=== PATIENT | male | born 1995 | race Caucasian/White ===

== ENCOUNTER 2020-05-31 02:07 | Emergency (ER) | payer OTHER ==
--- NOTE | 2020-05-31 02:11 | PDOC ---
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 Patient said there was a fair amount of blood and he got it on his hands and clothes. Patient denies getting any in his mouth nose face or eyes. Patient denies any open wounds on exposed surfaces where he came in contact with the blood. 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 No smoking. No alcohol. No illicit drugs. Surgical history: None General: No fevers or chills, no weakness, no weight loss HEENT: No change in vision. No sore throat,. No ear pain CardioVascular: no chest discomfort. No shortness of breath Respiratory:No cough, or wheezing. Gastrointestinal: no nausea, vomiting, diarrhea or constipation, No rectal bleeding Genitourinary: No dysuria, hematuria, or frequency Musculoskeletal: No joint or muscle pain or swelling Neurologic: No headache, vertigo, dizziness or loss of consciousness Psychiatric: nor depression Skin: No rashes or easy bruising Endocrine: no increased thirst or abnormal weight change Allergic: no skin or latex allergy All other systems reviewed and normal GENERAL: The patient is awake, alert, and fully oriented, in no acute distress. HEENT:Head is normal with no signs of trauma. Eyes: Pupils equal, round and reactive to light, Ears, and Throat are normal. Neck is supple. No Lymphadenopathy. EXTREMITIES:atraumatic, Normal range of motion, no edema. NEUROLOGICAL: Normal speech, normal gait. PSYCH: Normal mood, normal affect. SKIN: Warm, Dry, normal turgor, no rashes or lesions noted. 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 Patient discharged we will follow-up with the police surgeon as needed. HIV prophylaxis was not given as there was no exposure to mucous membranes or open wounds Discharge - Discharge Information Problems reviewed: Yes Clinical Impression/Diagnosis: Exposure to blood or body fluid Condition: Stable Disposition: HOME - Admission No - Follow up/Referral - Patient Discharge Instructions Additional Instructions: Return to the emergency department immediately with ANY new, persistent or worsening symptoms. Continue any medications as previously prescribed by your physician. You should follow up with your primary doctor as soon as possible regarding today's emergency department visit. . Please make sure your doctor reviews the results of your emergency evaluation. Thank you for coming to the Emergency Department today for your care. It was a pleasure to see you today. Please note that your evaluation is INCOMPLETE until you follow-up with your doctor. - Post Discharge Activity Work/Back to School Note: Back to Work
[2020-05-31 04:48] VITALS: BP 139/84; PULSE 88; TEMP 98.1; BMI 28.8
== END 2020-05-31 02:35 | disposition home or self-care (01) ==
LOC: FER 02:07
DX: Z77.21 Contact with and (suspected) exposure to potentially hazardous body fluids (principal)
CPT/HCPCS: 99282-25

== ENCOUNTER 2020-08-10 23:03 | Emergency (ER) | payer OTHER ==
--- NOTE | 2020-08-10 23:07 | PDOC ---
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 Patient describes falling directly on his right patella during the restraint. He does not recall any twisting motion or other injury to his lower extremities. No head/neck or torso injury sustained. When the patient arose, he felt some stiffness in the right knee as well as mild discomfort. Since then, he has had no difficulty with weightbearing or walking. Past history notable for 2 reconstructive procedures on the right patellar tendon (2012 and 2013) which involved cadaver donor tissue and hardware (football related injuries). The patient has no residual pain or difficulty with movement of the right knee. No daily medications No known allergies Non-smoker/no daily alcohol or other recreational drug use Past History - Medical History Allergies/Adverse Reactions: Allergies Allergy/AdvReac Type Severity Reaction Status Date / Time No Known Allergies Allergy Verified 08/10/20 23:28 Home Medications: Ambulatory Orders NK [No Known Home Medication] 05/31/20 COPD: No - Psycho-Social/Smoking History Smoking History: Never smoked Have you smoked in the past 12 months: No Review of Systems - Review of Systems Able to Perform ROS?: Yes Comments:: 12 point review of systems is negative except for what is noted in the history of present illness *Physical Exam - Physical Exam GENERAL: Adult male, alert and oriented x3, no acute distress HEAD: Normal with no signs of trauma. EYES: PERRLA, EOMI, sclera anicteric, conjunctiva clear. ENT: Ears normal, nares patent, oropharynx clear without exudates. Dry mucous membranes. EXTREMITIES: Right lower extremitymild edema anterior aspect of the knee without ecchymosis, tenderness or deformity Patellar tendon intact without defect or tenderness; ligamentous stable without pain on stressing Remainder the extremity exam is normal NEUROLOGICAL: Cranial nerves II through XII grossly intact. Normal speech. No focal neurological deficits SKIN: Warm, Dry, normal turgor, no rashes or lesions noted. ED Progress Note - Progress Note Progress Note: As noted above, this 25-year-old man, otherwise healthy, [employer] presents with right knee injury sustained while working about half hour prior to presentation. He describes impacting the right patella during the restraint of an EDP. He had some stiffness and discomfort at first, with weightbearing. Symptoms have subsequently improved. He has not taken any medication since the injury. Exam as noted. Because of the patient's history of patellar tendon reconstruction and mild edema of the patellar surface, 3 position x-ray of the right knee was performed. Preliminary interpretation by me: No evidence of acute fracture or dislocation. Results discussed with the patient. Patient refused any immobilization such as knee immobilizer or Obey wrap. He states when he returns home from work, he will elevate and ice the area. He also deferred any NSAID now and will take his own Motrin/Aleve when he returns home. Patient will follow-up with his orthopedist if he has persistent or worsening pain, swelling or bruising in the area. Discharge - Discharge Information Problems reviewed: Yes Clinical Impression/Diagnosis: Contusion of right knee Qualifiers: Encounter type: initial encounter Qualified Code(s): S80.01XA - Contusion of right knee, initial encounter Condition: Stable Disposition: HOME - Follow up/Referral - Patient Discharge Instructions Patient Printed Discharge Instructions: DI for Contusion Additional Instructions: Ice/elevation right knee for the next 2 days Avoid strenuous activity involving lower extremities for the next 3 to 4 days Ibuprofen/naproxen/acetaminophen as needed for pain Follow-up with your orthopedist if you have worsening pain/swelling - Post Discharge Activity
[2020-08-10 23:14] VITALS: BP 138/85; PULSE 103; TEMP 100.2; BMI 29.5
== END 2020-08-10 23:55 | disposition home or self-care (01) ==
LOC: FER 23:03
DX: S80.01XA Contusion of right knee, initial encounter (principal)
CPT/HCPCS: 73562-TC-RT-FY; 99284-25

== ENCOUNTER 2023-06-27 18:56 | Emergency (ER) | payer OTHER ==
[2023-06-27 19:12] VITALS: BP 124/75; PULSE 85; RESP 18; TEMP 97.8; BMI 32.3
[2023-06-27] MEDS ORDERED: IBUPROFEN 600 MG TABLET (FP) PO ONE ×2 (20:10→20:17)
== END 2023-06-27 20:22 | disposition home or self-care (01) ==
LOC: FER 18:56
DX: M25.562 Pain in left knee (principal); M54.2 Cervicalgia; M54.6 Pain in thoracic spine; S86.912A Strain of unspecified muscle(s) and tendon(s) at lower leg level, left leg, initial encounter; S16.1XXA Strain of muscle, fascia and tendon at neck level, initial encounter; Y04.0XXA Assault by unarmed brawl or fight, initial encounter
CPT/HCPCS: 72050-TC-FY; 99283-25

== ENCOUNTER 2024-01-30 22:42 | Emergency (ER) | payer OTHER ==
[2024-01-30 23:00] VITALS: BP 125/94; PULSE 107; RESP 16; TEMP 98.8; BMI 30.8
== END 2024-01-30 23:05 | disposition home or self-care (01) ==
LOC: FER 22:42
DX: M25.531 Pain in right wrist (principal); S63.501A Unspecified sprain of right wrist, initial encounter; X50.1XXA Overexertion from prolonged static or awkward postures, initial encounter
CPT/HCPCS: 99282-25